=== PATIENT | female | born 1985 | race Caucasian/White ===

== ENCOUNTER 2019-09-22 10:34 | Emergency (ER) | payer MEDICAID ==
[~2019-09-22] VITALS: Ht 162.6 cm; Wt 65.8 kg
[2019-09-22 10:44] VITALS: Ht 162.6 cm; Wt 65.8 kg
[2019-09-22 12:33] LABS: CALCIUM 9.7 mg/dL (8.5-10.1); CARBON DIOXIDE 30.4 mmol/L (21-32); CHLORIDE SERUM 105 mmol/L (98-107); CREATININE SERUM 0.6 mg/dL (0.6-1.0); GFR1 > 60 mL/min; GLUCOSE SERUM 92 mg/dL (74-106); POTASSIUM SERUM 3.9 mmol/L (3.5-5.1); SODIUM SERUM 141 mmol/L (136-145)
[2019-09-22 12:35] LABS: PLATELET COUNT 283 x10^3mcL (130-400); RED CELL DISTRIBUTION WIDTH 12.8 % (11.5-14.5)
[2019-09-22 12:36] LABS: ALBUMIN 3.4 g/dL (3.4-5.0); ALKALINE PHOSPHATASE 102 U/L (46-116); ALT/SGPT 19 U/L (14-59); AMYLASE 31 U/L (25-115); AST/SGOT 13 U/L (15-37); BILIRUBIN TOTAL 0.78 mg/dL (0.20-1.00); LIPASE 90 IU/L (73-393); TOTAL PROTEIN, SERUM 7.5 g/dL (6.4-8.2)
[2019-09-22 12:39] LABS: BASOPHIL % 0 % (0-2)
[2019-09-22 14:41] VITALS: BP 111/66
== END 2019-09-22 14:41 | disposition home or self-care (01) ==
LOC: ED 10:34
PROVIDERS: Emergency Medicine
DX: K80.50 Calculus of bile duct without cholangitis or cholecystitis without obstruction (principal); Z90.89 Acquired absence of other organs; Z98.51 Tubal ligation status
CPT/HCPCS: J1885; J2405; J7030; Q0092

== ENCOUNTER 2019-09-23 21:12 | Emergency (ER) | payer MEDICAID ==
[~2019-09-23] VITALS: Ht 162.6 cm; Wt 67.1 kg
[2019-09-23 21:16] VITALS: Ht 162.6 cm; Wt 67.1 kg
[2019-09-23 22:07] LABS: microscopic required? YES; urine erythrocyte 1+ (NEGATIVE)
[2019-09-23 22:08] LABS: BASOPHIL % 0.1 % (0-2); PLATELET COUNT 224 x10^3mcL (130-400); RED CELL DISTRIBUTION WIDTH 12.7 % (11.5-14.5)
[2019-09-23 22:22] LABS: CREATININE SERUM 0.8 mg/dL (0.6-1.0); GFR1 > 60 mL/min; POTASSIUM SERUM 3.3 mmol/L (3.5-5.1); SODIUM SERUM 140 mmol/L (136-145)
[2019-09-23 22:28] LABS: CALCIUM 9.5 mg/dL (8.5-10.1); CARBON DIOXIDE 24.4 mmol/L (21-32); CHLORIDE SERUM 106 mmol/L (98-107); GLUCOSE SERUM 119 mg/dL (74-106)
[2019-09-23 22:29] LABS: ALBUMIN 3.1 g/dL (3.4-5.0)
[2019-09-23 22:32] LABS: TOTAL PROTEIN, SERUM 7.1 g/dL (6.4-8.2)
[2019-09-23 22:33] LABS: ALKALINE PHOSPHATASE 91 U/L (46-116); ALT/SGPT 20 U/L (14-59); AST/SGOT 15 U/L (15-37); BILIRUBIN TOTAL 0.53 mg/dL (0.20-1.00); LIPASE 112 IU/L (73-393)
[2019-09-24 01:18] VITALS: BP 103/65
== END 2019-09-24 01:18 | disposition home or self-care (01) ==
LOC: ED 21:12
PROVIDERS: Emergency Medicine
DX: N76.0 Acute vaginitis (principal); N39.0 Urinary tract infection, site not specified; Z90.89 Acquired absence of other organs; Z98.51 Tubal ligation status
CPT/HCPCS: 87491; 87591; J0696; J2270; J2405; J7030; J7060

== ENCOUNTER 2019-10-14 06:10 | Day surgery (SDC) | payer MEDICAID, SELFPAY ==
[2019-10-11 10:44] LABS: PLATELET COUNT 297 x10^3mcL (130-400); RED CELL DISTRIBUTION WIDTH 13.6 % (11.5-14.5)
[2019-10-11 10:59] LABS: ALBUMIN 3.6 g/dL (3.4-5.0); ALKALINE PHOSPHATASE 92 U/L (46-116); ALT/SGPT 22 U/L (14-59); AST/SGOT 13 U/L (15-37); BILIRUBIN TOTAL 0.8 mg/dL (0.20-1.00); CALCIUM 9.6 mg/dL (8.5-10.1); CARBON DIOXIDE 26.2 mmol/L (21-32); CHLORIDE SERUM 106 mmol/L (98-107); CREATININE SERUM 0.6 mg/dL (0.6-1.0); GFR1 > 60 mL/min; GLUCOSE SERUM 84 mg/dL (74-106); POTASSIUM SERUM 3.9 mmol/L (3.5-5.1); SODIUM SERUM 142 mmol/L (136-145); TOTAL PROTEIN, SERUM 7.5 g/dL (6.4-8.2)
[~2019-10-14] VITALS: Ht 162.6 cm; Wt 63.5 kg
[2019-10-14 06:43] VITALS: BP 112/58
[2019-10-14 15:16] VITALS: BP 102/65
== END 2019-10-14 15:10 | disposition home or self-care (01) ==
LOC: DS 06:10 → OR 09:30 → DS 09:30
PROVIDERS: Surgery
DX: K80.10 Calculus of gallbladder with chronic cholecystitis without obstruction (principal)
CPT/HCPCS: J0330; J0690; J1170; J1885; J2001; J2250; J2405; J2710; J3490; J7030; J7120; Q0092